=== PATIENT | female | born 1980 | race Caucasian/White ===

== ENCOUNTER 2017-09-29 00:38 | Emergency (ER) | payer MEDICAID, OTHER ==
[~2017-09-29] VITALS: Ht 165.1 cm; Wt 118.0 kg
[~2017-09-29 00:38] MED LIST: ALBU18HF2 IH
[2017-09-29] MEDS ORDERED: SODIUM CHLORIDE 0.9% 1,000 ML IV ONE (04:00)
[2017-09-29] MEDS ORDERED: ONDANSETRON HCL 4MG/2ML VIAL IV STA (04:00)
[2017-09-29 04:17] LABS: BASOPHILS % 0.6 % (0.0-2.0); EOSINOPHILS % 1.9 % (0.0-5.0); HEMATOCRIT. 40.1 % (36.0-48.0); HEMOGLOBIN. 13.4 g/dL (12.0-16.0); LYMPHOCYTES % 18.6 % (20.0-50.0); MEAN CORPUSCULAR HEMOGLOBIN 27.6 pg (28.0-32.0); MEAN CORPUSCULAR VOLUME 82.7 fL (81.0-99.0); MEAN PLATELET VOLUME 10.3 fl (7.4-10.4); MONOCYTES % 6.3 % (2.0-8.0); NEUTROPHILS % 72.6 % (40.0-76.0); PLATELET 166 x1000/uL (130-400); RED BLOOD CELL COUNT 4.85 mill/uL (4.2-5.4); RED CELL DISTRIBUTION WIDTH 13.5 % (11.6-14.6)
[2017-09-29 04:22] LABS: CHLORIDE 105 mEq/L (98-107)
[2017-09-29 05:07] LABS: CLARITY URINE CLOUDY (CLEAR); COLOR URINE YELLOW (YELLOW); KETONES URINE NEGATIVE (NEGATIVE); LEUKOCYTE ESTERASE URINE 3+ (NEGATIVE); NITRITE URINE POSITIVE (NEGATIVE); OCCULT BLOOD URINE 2+ (NEGATIVE); PROTEIN URINE TRACE (NEGATIVE); SPECIFIC GRAVITY URINE 1.017 (1.005-1.030)
[2017-09-29 05:45] VITALS: BP 126/77
== END 2017-09-29 07:30 | disposition home or self-care (01) ==
LOC: ER 00:38
DX: N39.0 Urinary tract infection, site not specified (principal)
CPT/HCPCS: 36415; 80053; 81003; 81025; 83690; 85025; 87077; 87086; 87186; 96361; 96374; 99284; J2405; J7030; Z7610

== ENCOUNTER 2022-01-10 07:00 | Emergency (ER) | payer OTHER ==
[~2022-01-10] VITALS: Ht 165.1 cm; Wt 126.5 kg
[2022-01-10 07:03] VITALS: BP 147/89
[2022-01-10] MEDS ORDERED: BO1 TP (08:33)
== END 2022-01-10 08:47 | disposition home or self-care (01) ==
LOC: ER 07:00
DX: S90.821A Blister (nonthermal), right foot, initial encounter (principal); L08.9 Local infection of the skin and subcutaneous tissue, unspecified; X58.XXXA Exposure to other specified factors, initial encounter; Y93.9 Activity, unspecified; Y92.9 Unspecified place or not applicable; F17.210 Nicotine dependence, cigarettes, uncomplicated; Z98.890 Other specified postprocedural states
CPT/HCPCS: 99281

== ENCOUNTER 2024-03-29 04:22 | Emergency (ER) | payer BC, OTHER ==
[~2024-03-29] VITALS: Ht 167.6 cm; Wt 127.0 kg
[~2024-03-29 04:22] MED LIST changes: +BO1 TP
[2024-03-29 04:38] VITALS: TEMP 98.8; O2SAT 99
[2024-03-29 06:55] VITALS: BP 152/86; PULSE 76; RESP 18
[2024-03-29] MEDS: KETOROLAC 30MG/ML VIAL IM ONE (06:55)
[2024-03-29 07:51] LABS: CLARITY URINE CLEAR (CLEAR); COLOR URINE YELLOW (YELLOW); GLUCOSE URINE 3+ (NEGATIVE); KETONES URINE NEGATIVE (NEGATIVE); LEUKOCYTE ESTERASE URINE NEGATIVE (NEGATIVE); NITRITE URINE NEGATIVE (NEGATIVE); OCCULT BLOOD URINE NEGATIVE (NEGATIVE); PH URINE 5.5 (4.5-8.0); PROTEIN URINE NEGATIVE (NEGATIVE); SPECIFIC GRAVITY URINE 1.039 (1.005-1.030); UROBILINOGEN URINE 0.2 E.U./dL (0.2-1.0)
[2024-03-29 08:11] LABS: BASOPHILS % 0.4 % (0.0-2.0); EOSINOPHILS % 1.7 % (0.0-5.0); HEMATOCRIT. 43.1 % (36.0-48.0); HEMOGLOBIN. 14.3 g/dL (12.0-16.0); LYMPHOCYTES % 25.8 % (20.0-50.0); MEAN CORPUSCULAR HEMOGLOBIN 28.4 pg (28.0-32.0); MEAN CORPUSCULAR HGB CONC 33.1 g/dL (31.0-37.0); MEAN CORPUSCULAR VOLUME 85.9 fL (81.0-99.0); MEAN PLATELET VOLUME 11.1 fl (7.4-10.4); MONOCYTES % 5.1 % (2.0-8.0); PLATELET 139 x1000/uL (130-400); RED BLOOD CELL COUNT 5.02 mill/uL (4.2-5.4); RED CELL DISTRIBUTION WIDTH 13.7 % (11.6-14.6); WHITE BLOOD COUNT 5.8 x1000/uL (4.5-11.0)
[2024-03-29 08:12] LABS: BACTERIA URINE FEW; RBC URINE 0-2 /hpf (0-2); SQUAMOUS EPITHELIAL CELL URINE FEW /lpf (RARE/1+); WBC URINE 0-2 /hpf (0-2); YEAST URINE NONE SEEN
[2024-03-29 08:15] LABS: HCG SCREEN NEGATIVE
[2024-03-29 08:19] LABS: CARBON DIOXIDE 22 mEq/L (21-32); CHLORIDE 106 mEq/L (98-107); POTASSIUM 4.5 mEq/L (3.5-5.1); SODIUM 137 mEq/L (136-145)
[2024-03-29 08:20] LABS: CALCIUM 10.3 mg/dL (8.7-10.4)
[2024-03-29 08:24] LABS: CREATININE 0.6 mg/dL (0.6-1.0); GLUCOSE 247 mg/dL (70-105)
[2024-03-29 08:25] LABS: UREA NITROGEN BLOOD 9 mg/dL (9-23)
[2024-03-29] MEDS ORDERED: IBUP-2029 MT (09:28)
== END 2024-03-29 09:37 | disposition home or self-care (01) ==
LOC: ER 04:22
DX: K42.9 Umbilical hernia without obstruction or gangrene (principal); K43.9 Ventral hernia without obstruction or gangrene
CPT/HCPCS: 99285; 74176; 80048; 81003; 81025; 84703; 83690; 85025; 36415; 96372; J1885